=== PATIENT | female | born 1970 | race African-American/Black ===

== ENCOUNTER 2017-08-06 08:56 | Emergency (ER) | payer SELFPAY ==
[~2017-08-06] VITALS: Ht 167.6 cm; Wt 97.0 kg
[2017-08-06 08:58] VITALS: BP 130/74; PULSE 77; RESP 12; TEMP 98.5; O2SAT 99
[2017-08-06] MEDS ORDERED: KETOROLAC TROMETHAMINE 60 MG/2 ML (IM) VIAL IM ONE (09:45)
[2017-08-06] MEDS ORDERED: ONDANSETRON HCL 4 MG/2 ML VIAL IM ONE (09:45)
[2017-08-06] MEDS ORDERED: METR-1 PO (10:06)
[2017-08-06] MEDS ORDERED: ZOFR4TAB PO (10:06)
[2017-08-06] MEDS ORDERED: TRAM50TA PO (10:06)
[2017-08-06] MEDS ORDERED: CIPR-9 PO (10:06)
--- NOTE | 2017-08-06 10:09 | PD ---
HPI Chief Complaint: GI Complaint Time Seen by Provider: 09:31 Travel History International Travel<30 days: No Contact w/Intl Traveler<30days: No Traveled to known affect area: No History of Present Illness HPI The patient was seen and examined in the presence of the nurse. This patient complains of abdominal pain. Location is left lower quadrant. Duration 2 days. Severity is moderate. No diarrhea but some nausea. No alleviating factors. Patient has history of diverticulitis and this feels exactly the same and she is positive that was going on. No vaginal bleeding or symptoms PFSH Past Medical History Hx Anticoagulant Therapy: No Cardiovascular Problems: No Chemotherapy: No Cerebrovascular Accident: No Diabetes: No Diminished Hearing: No Diverticulitis: Yes Respiratory: No ?: Not Past Surgical History Gynecologic Surgery: Yes (oblasion endometriosis ) Hysterectomy: No Social History Alcohol Use: No Tobacco Use: No Substance Use: No Allergies-Medications (Allergen,Severity, Reaction): Coded Allergies: No Known Allergies (Unverified , 08/06/17) Reported Meds & Prescriptions Reported Meds & Active Scripts Active No Active Prescriptions or Reported Medications Review of Systems General / Constitutional: No: Fever Eyes: No: Visual changes HENT: No: Headaches Cardiovascular: No: Chest Pain or Discomfort Respiratory: No: Shortness of Breath Gastrointestinal: Positive: Nausea, Abdominal Pain Genitourinary: No: Dysuria Musculoskeletal: No: Pain Skin: No Rash Neurologic: No: Weakness Psychiatric: No: Depression Endocrine: No: Polydipsia Hematologic/Lymphatic: No: Easy Bruising Physical Exam Narrative GENERAL: Well-nourished, well-developed patient in no apparent distress. SKIN: Focused skin assessment reveals no rash and nodules. Skin is Warm and dry. HEAD: Atraumatic. Normocephalic. EYES: Pupils equal and round. No scleral icterus. No injection or drainage. ENT: No nasal bleeding or discharge. Mucous membranes pink and moist. NECK: Trachea midline. No JVD. CARDIOVASCULAR: Regular rate and rhythm. No murmur appreciated. RESPIRATORY: No accessory muscle use. Clear to auscultation. Breath sounds equal bilaterally. GASTROINTESTINAL: Abdomen soft, left lower quadrant is tender without rebound or guarding, nondistended. Hepatic and splenic margins not palpable. MUSCULOSKELETAL: No obvious deformities. No clubbing. No cyanosis. No edema. NEUROLOGICAL: Awake and alert. No obvious cranial nerve deficits. Motor grossly within normal limits. Normal speech. PSYCHIATRIC: Appropriate mood and affect; insight and judgment normal. Data Data Last Documented VS Vital Signs Date Time Temp Pulse Resp B/P (MAP) Pulse Ox O2 Delivery O2 Flow Rate FiO2 08/06/17 08:58 98.5 77 12 130/74 (92) 99 Orders Orders Ondansetron Inj (Zofran Inj) (08/06/17 09:45) Ed Urine Pregnancytest Poc (08/06/17 09:39) Ketorolac Inj (Toradol Inj) (08/06/17 09:45) [facility] Medical Decision Making Medical Screen Exam Complete: Yes Emergency Medical Condition: Yes Medical Record Reviewed: Yes Differential Diagnosis Diverticulitis, ectopic, colitis Narrative Course I have reviewed the patient's electronic medical record. Urine is negative We discussed options. She is convinced she has diverticulitis and certainly that is very likely. She just wants to start treatment and does not want a lot of testing. Given that she is young and healthy I feel that is reasonable I prescribed a course of Cipro and Flagyl as well as pain and nausea medicine to use as needed Injection of Toradol and Zofran given here. She is driving home Diagnosis Primary Impression: Abdominal pain Qualified Codes: R10.12 - Left upper quadrant pain Additional Instructions: The patient was advised to follow up with their physician and return if they worsen. The patient was warned about potential sedation for the medications they will receive on prescription. Med/Other Pt SpecificInfo: Prescription(s) given Scripts Ciprofloxacin (Cipro) 500 Mg Tab 500 MG PO BID for Infection, #16 TAB 0 Refills Prov: Luis Daniel Ashton MD 08/06/17 Metronidazole (Flagyl) 500 Mg Tab 500 MG PO QID for Infection, #32 TAB 0 Refills Prov: Luis Daniel Ashton MD 08/06/17 Ondansetron (Zofran) 4 Mg Tab 4 MG PO Q6HR Y for NAUSEA OR VOMITING, #14 TAB 0 Refills Prov: Luis Daniel Ashton MD 08/06/17 Tramadol (Tramadol) 50 Mg Tab 50 MG PO Q6H Y for PAIN, #20 TAB 0 Refills Prov: Luis Daniel Ashton MD 11/4/17 Disposition: 01 DISCHARGE HOME Condition: Stable Luis Daniel Ashton MD Aug 06, 2017 10:09
== END 2017-08-06 10:27 | disposition home or self-care (01) ==
LOC: NEPE 08:56
DX: R10.12 Left upper quadrant pain (principal)
CPT/HCPCS: 84703; 96372; 99284; J1885; J2405